=== PATIENT | female | born 1950 | race African-American/Black ===

== ENCOUNTER 2017-03-20 12:03 | Emergency (ER) | payer MEDICARE ==
[~2017-03-20] VITALS: Ht 154.9 cm; Wt 61.2 kg
[2017-03-20] MEDS ORDERED: CATAPRES0.1 MG ORAL (12:05)
[2017-03-20] MEDS ORDERED: LOSARTAN-HCTZ1 EAC1 ORAL (12:05)
[2017-03-20] MEDS ORDERED: LORazepam 1mg tab ORAL ONE (12:15)
--- NOTE | 2017-03-20 12:15 | Emergency Room Report ---
History of Present Illness General Chief Complaint: General Complaint Source: EMS Present Illness HPI The patient is a 66 old female with a history of hypertension presenting for palpitations and anxiety for the past 3 days. She states that she has been under increased stress due to family issues. She does admit to a history of anxiety in the past but has never been diagnosed and has never been medically treated. She denies any chest pain but admits to a feeling of heart beating out of her chest. She also admits to feeling of dizziness when this occurs. She denies any other symptoms including nausea, vomiting, fever, chills, headache, blurred vision, shortness of breath, abdominal pain, numbness or tingling Allergies: Coded Allergies: No Known Allergies (Unverified , 03/20/17) Patient History Past Medical History: see triage record Pertinent Family History: none Now: No Reviewed Nursing Documentation: PMH: Agreed, PSxH: Agreed Nursing Documentation-PMH Hx Hypertension: Yes Review of Systems All Other Systems: negative except mentioned in HPI Physical Exam Vital Signs Date Time Temp Pulse Resp B/P Pulse Ox O2 Delivery O2 Flow Rate FiO2 03/20/17 12:01 98.6 68 20 132/78 100 Room Air Sp02 EP Interpretation: reviewed, normal General Appearance: alert, GCS 15, mild distress Head: normocephalic, atraumatic ENT: hearing grossly normal, normal pharynx, no angioedema, normal voice Respiratory: chest non-tender, lungs clear, normal breath sounds, speaking full sentences Cardiovascular #1: regular rate, rhythm, no edema Gastrointestinal: normal bowel sounds, non tender, soft, non-distended, no guarding, no rebound Rectal: deferred Musculoskeletal: back normal, gait/station normal, normal range of motion, non- tender Neurologic: alert, oriented x3, responsive, motor strength/tone normal, sensory intact, speech normal Psychiatric: judgement/insight normal, memory normal, mood/affect normal, no suicidal/homicidal ideation Skin: normal color, no rash, warm/dry, well hydrated Lymphatic: no adenopathy Medical Decision Making PA Attestation Dr. Dangelo is my supervising physician. Patient management was discussed with my supervising physician Diagnostic Impression: Primary Impression: Anxiety ER Course The patient is a 66-year-old female presenting for anxiety due to increased family stress Differential diagnoses considered but not limited to: Anxiety, depression, ACS, among others PE: vitals WNL. The patient is visibly anxious and is crying during examination and history. RRR. Lungs CTA bilat Otherwise exam unremarkable Blood work unremarkable. Cardiac markers essentially negative. EKG shows sinus bradycardia at 59 bpm. No acute changes She is given 1mg of ativan PO and is feeling better. No longer appears anxious She will be DC'ed home with a limited prescription for ativan and needs to see PMD and psych. [facility] urgent care info given. ER precautions given Laboratory Tests Test 03/20/17 12:29 White Blood Count 6.4 K/UL (4.8-10.8) Red Blood Count 4.99 M/UL (4.20-5.40) Hemoglobin 13.9 G/DL (12.0-16.0) Hematocrit 43.6 % (37.0-47.0) Mean Corpuscular Volume 87 FL (80-99) Mean Corpuscular Hemoglobin 27.9 PG (27.0-31.0) Mean Corpuscular Hemoglobin Concent 31.9 G/DL (32.0-36.0) L Red Cell Distribution Width 15.5 % (11.6-14.8) H Platelet Count 275 K/UL (150-450) Mean Platelet Volume 6.3 FL (6.5-10.1) L Neutrophils (%) (Auto) 41.6 % (45.0-75.0) L Lymphocytes (%) (Auto) 49.5 % (20.0-45.0) H Monocytes (%) (Auto) 6.2 % (1.0-10.0) Eosinophils (%) (Auto) 1.3 % (0.0-3.0) Basophils (%) (Auto) 1.5 % (0.0-2.0) Sodium Level 140 mEQ/L (135-145) Potassium Level 3.4 mEQ/L (3.4-4.9) Chloride Level 97 mEQ/L (98-107) L Carbon Dioxide Level 24 mEQ/L (20-30) Anion Gap 19 (5-15) H Blood Urea Nitrogen 8 mg/dL (7-23) Creatinine 0.8 mg/dL (0.5-0.9) Estimate Glomerular Filtration Rate > 60 mL/min (>60) Glucose Level 92 mg/dL (74-106) Calcium Level 9.5 mg/dL (8.6-10.2) Total Bilirubin 0.3 mg/dL (0.0-1.2) Aspartate Amino Transferase (AST) 15 U/L (5-40) Alanine Aminotransferase (ALT) 12 U/L (3-33) Alkaline Phosphatase 70 U/L (35-104) Creatine Kinase MB < 1.5 ng/mL (< 3.8) Troponin I < 0.30 ng/mL (<=0.30) Total Protein 8.5 g/dL (6.6-8.7) Albumin 4.3 g/dL (3.5-5.2) Globulin 4.2 g/dL Albumin/Globulin Ratio 1.0 (1.0-2.7) Lab Results Impression CBC, CMP, and cardiac markers are unremarkable. EKG Diagnostic Results EP Interpretation: Sinus bradycardia. No acute findings Rate: bradycardiac - 59 Rhythm: NSR ST Segments: no acute changes ASA given to the pt in ED: No PA Scribe Text EKG was reviewed and read with my supervising physician. No acute ST segment changes are seen. Normal rhythm. Sinus andie. No acute changes. Last Vital Signs Date Time Temp Pulse Resp B/P Pulse Ox O2 Delivery O2 Flow Rate FiO2 03/20/17 12:01 98.6 68 20 132/78 100 Room Air Status: improved Disposition: HOME, SELF-CARE Condition: Improved Scripts Lorazepam* (ATIVAN*) 0.5 Mg Tablet 0.5 MG ORAL THREE TIMES A DAY, #10 TAB Prov: SUSI DANG 03/20/17 SUSI DANG Mar 20, 2017 12:15
[2017-03-20 13:00] LABS: BASOPHILS % (AUTO) 1.5 % (0.0-2.0); EOSINOPHILS % (AUTO) 1.3 % (0.0-3.0); LYMPHOCYTES % (AUTO) 49.5 % (20.0-45.0); MEAN CORPUSCULAR HEMOGLOBIN 27.9 PG (27.0-31.0); MEAN CORPUSCULAR HGB CONC 31.9 G/DL (32.0-36.0); MEAN CORPUSCULAR VOLUME 87 FL (80-99); MEAN PLATELET VOLUME 6.3 FL (6.5-10.1); MONOCYTES % (AUTO) 6.2 % (1.0-10.0); NEUTROPHILS % (AUTO) 41.6 % (45.0-75.0); PLATELET COUNT 275 K/UL (150-450); RED BLOOD COUNT 4.99 M/UL (4.20-5.40); RED CELL DISTRIBUTION WIDTH 15.5 % (11.6-14.8); WHITE BLOOD COUNT 6.4 K/UL (4.8-10.8)
[2017-03-20 13:06] LABS: ALANINE AMINOTRANSFERASE 12 U/L (3-33); ANION GAP 19 (5-15); ASPARTATE AMINO TRANSFERASE 15 U/L (5-40); CALCIUM 9.5 mg/dL (8.6-10.2); CARBON DIOXIDE 24 mEQ/L (20-30); CHLORIDE 97 mEQ/L (98-107); CREATININE 0.8 mg/dL (0.5-0.9); GLOMERULAR FILTRATION RATE > 60 mL/min (>60); HEMOLYSIS 21; POTASSIUM 3.4 mEQ/L (3.4-4.9); SODIUM 140 mEQ/L (135-145); TOTAL PROTEIN 8.5 g/dL (6.6-8.7); TROPONIN I < 0.30 ng/mL (<=0.30)
[2017-03-20 13:53] LABS: CKMB < 1.5 ng/mL (< 3.8)
[2017-03-20 13:55] VITALS: BP 147/58
[2017-03-20] MEDS ORDERED: ATIVAN0.5 MG ORAL (14:00)
[2017-03-20 14:11] VITALS: BP 147/58
== END 2017-03-20 14:10 | disposition home or self-care (01) ==
LOC: EDBD 12:03 → EMR 12:50
DX: F41.9 Anxiety disorder, unspecified (principal); I10 Essential (primary) hypertension; R00.1 Bradycardia, unspecified
CPT/HCPCS: 36415; 80053; 82553; 84484; 85025; 93005; 96374